=== PATIENT | female | born 1930 | race Asian ===

== ENCOUNTER 2016-03-20 16:27 | Emergency (ER) | payer OTHER ==
--- NOTE | 2016-03-20 18:41 | ED ORDER SUMMARY ---
..... Patient: ROZINA GUADALUPE OrderSheet [facility] VisitID: [id number] [address] [place] [address] 85y, F Registration Date/Time: 03/20/2016 ORDER SHEET Weight: 52.1 kg (estimated) Allergies: Macrobid GENERAL ORDERS: Chest 2V Urgent (16:03/20/2016 PHutchinson DO) (Ack 16:33 LTapper) (17:07 MWinterer R.N.) Team Assembly Line Machine Operator (Continuous) (16:03/20/2016 PHutchinson DO) (16:41 MWinterer R.N.) UA-Culture if indicated Urgent (16:03/20/2016 PHnvchinson DO) (Ack 16:33 LTapper) (17:23 MWinterer R.N.) Cardiac Panel Stat (16:03/20/2016 PHnvchinson DO) (Ack 16:33 LTapper) (17:07 MWinterer R.N.) BNP Urgent (16:03/20/2016 PHutchinson DO) (Ack 16:33 LTapper) (17:07 MWinterer R.N.) Amylase Urgent (16:03/20/2016 PHutchinson DO) (Ack 16:33 LTapper) (17:07 MWinterer R.N.) Lipase Urgent (16:03/20/2016 PHnvchinson DO) (Ack 16:33 LTapper) (17:07 MWinterer R.N.) TSH Urgent (16:03/20/2016 PHutchinson DO) (Ack 16:33 LTapper) (17:07 MWinterer R.N.) PT with INR Urgent (16:03/20/2016 PHutchinson DO) (Ack 16:33 LTapper) (17:07 MWinterer R.N.) Pulse oximeter (16:03/20/2016 PHnvchinson DO) (16:41 MWinterer R.N.) EKG - ER Stat ([facility] (Ack 16:33 LTapper) (16:41 MWinterer R.N.) MEDICATION ORDERS: Aspirin PO 325 mg (if not yet taken) (16:31 03/20/2016 [facility]) (16:41 MWinterer R.N.) IV FLUIDS: IV NS : initial bolus 500 mL (1000 mL/hr), then 250 mL/hr for X2 (NOW) (16:31 03/20/2016 [facility]) (Ack 16:41 MWinterer R.N.) (16:48 MWinterer R.N.) Ceftriaxone IV 2 gm/50mL (NOW) (18:15 03/20/2016 [facility]) (Ack 18:16 MWinterer R.N.) (18:20 MWinterer R.N.) ORDER SHEET NOTES: [Electronically signed by Xena Bar (02:30 03/21/2016)] [Electronically signed by Avelino Maldonado DO (09:02 03/21/2016)] [Electronically locked/signed by Xena Bar (02:03/21/2016)]
--- NOTE | 2016-03-20 18:41 | ED NURSING NOTES ---
Clinical Report - Nurses [facility] [place] [address] 03/20/2016 16:27 Patient: ROZINA GUADALUPE TRIAGE Acuity: LEVEL 3. Chief Complaint: CHEST PAIN. Alert. No acute distress. SEPSIS SCREEN: Sepsis Screen. Negative (no infection suspected/documented). --16:42 Latonya Crump R.N. 16:29 03/20/16. BP: 162/68. HR: 86. RR: 20. O2 saturation: 100% on room air. Temp: 98.9 F (oral). Pain level now: 04/30. --16:42 Latonya Crump R.N. Weight: 52.1 kg estimated. Height/Length: 60 inches Estimated. BMI: 22.4. --16:41 Latonya Crump R.N. Medications Tylenol Oral, as needed. --16:34 Latonya Crump R.N. Escitalopram Oxalate Oral 10 mg, daily. --16:35 Latonya Crump R.N. Morphine Sulfate Oral. --16:35 Latonya Crump R.N. LORazepam Oral 0.5 mg, as needed. --16:36 Latonya Crump R.N. Bisac-Evac Rectal. --16:36 Latonya Crump R.N. Haloperidol Oral. --16:36 Latonya Crump R.N. Voltaren Transdermal. --16:37 Latonya Crump R.N. Atropine Sulfate Ophthalmic. --16:37 Latonya Crump R.N. Calcium 500 Oral. --16:38 Latonya Crump R.N. Medication/allergy information source: the patient's [facility] record. --16:42 Latonya Crump R.N. Allergies Macrobid. --16:39 Latonya Crump R.N. History Arrived by EMS. Historian: patient. Unaccompanied. Primary physician (Josh). This started last night. Relates location as in the right chest area. No difficulty breathing, sweating episodes, nausea, vomiting or fever. No cough. PAST MEDICAL HX: The patient is post-menopausal. SKIN INTEGRITY ASSESSMENT: Skin integrity risk assessment was performed. Risk factors identified include restricted mobility and incontinent. FALL RISK ASSESSMENT: Fall risk assessment completed. Risk factors identified include patient age greater than 65 years and impairment of mobility, sight and cognition. Fall interventions initiated. Patient placed on stretcher. Brakes on Bed in low position. Call light in reach of patient. FUNCTIONAL ASSESSMENT: Functional assessment performed: requires assistance with the activities of daily living; mobility impairment present- this mobility impairment is an ongoing problem; has poor vision in both eyes; cognitive impairment- senile dementia. LEARNING NEEDS ASSESSMENT: A learning needs assessment was performed. Factors affecting the patient's ability to learn include cognitive limitations. --16:42 Latonya Crump R.N. PROBLEMS: Lower Extremity Pain. Cervical Strain. Contusion. Osteoporosis. Hyperlipidemia. Hypertension. Fall. Diabetes Mellitus. --16:39 Latonya Crump R.N. ADDITIONAL SURGERIES: Hip Surgery. --16:39 Latonya Crump R.N. Interventions ID band on patient. To treatment room. --16:42 Latonya Crump R.N. PHYSICAL ASSESSMENT 16:43 03/20/16. To room via stretcher. GENERAL / NEURO / PSYCH: Alert. Appears in no acute distress. The patient is disoriented to place and time. HEENT: Mucous membranes are pink. RESPIRATORY: Respirations not labored. CVS: Cardiac rhythm: normal sinus rhythm. Heart sounds within normal limits. GI / : Abdomen soft and nontender. EXTREMITIES: No lower extremity edema. SKIN: Skin is warm and dry. Normal skin turgor. --16:43 Latonya Crump R.N. NURSING PROGRESS NOTES 16:41 03/20/2016 Aspirin PO 325 mg given. Allergies verified and confirmed 5 rights. --16:41 Latonya Crump R.N. 16:43 03/20/16. electronics worker, pulse oximeter and NIBP monitor placed on patient; monitor alarms on. Patient gowned. Two patient identifiers checked. Call light placed in reach. Side rails up x 2. Bed placed in lowest position. Brakes of bed on. Patient ready for evaluation- chart flagged and ED physician notified. --16:43 Latonya Crump R.N. 16:44 03/20/2016 Site #1 started prior to arrival by EMS via IV in the right antecubital space with an 20g angiocath. Saline lock flushed with 10 mL saline. --16:44 Latonya Crump R.N. 16:48 03/20/2016 Started bag #1 1000 mL IV Fluids IV NS (Saline); at 999 mL/hr over 30 minute(s) via site #1 via IV pump. Allergies verified and confirmed 5 rights. IV patency established. IV site checked: no pain, redness, or swelling. IV flushed thoroughly pre- and post-medication administration. --16:48 Latonya Crump R.N. 17:21 03/20/16. 8 fr in/out catheterization. During procedure hand hygiene observed and sterile equipment and aseptic technique used. Return of yellow-colored cloudy urine. She tolerated procedure well. Patient ID band checked for patient name and birthdate. Catheterized urine collected; sample sent to lab for urinalysis. Specimen labeled in the presence of the patient. --17:21 Latonya Crump R.N. 17:21. Quality Control Inspector provided (catheterization.). --17:51 YasmanyvijayLydia EKG time: (16:48). EKG was performed by a tech and shown to the ED physician. --17:52 Yasmanyvijay Lydia 18:09 03/20/16. BP: 151/74. HR: 85. RR: 19. O2 saturation: 95% on room air. Temp: 98.4 F (oral). --18:10 Latonya Crump R.N. 18:10 03/20/16. The patient reports no complaints and she is calm and resting quietly. --18:10 Latonya Crump R.N. 18:11 03/20/2016 IV Fluids IV NS via IV site #1 Rate Changed: bag #1 decreased to 250 mL/hr. IV patency established. IV site checked: no pain, redness, or swelling. IV flushed thoroughly. Confirmed 5 Rights. --18:11 Latonya Crump R.N. 18:20 03/20/2016 Started 2 gm of Ceftriaxone IVPB in bag #1 50 mL; at 150 mL/hr over 20 minute(s) via site #1 via IV pump. Allergies verified and confirmed 5 rights. IV patency established. IV site checked: no pain, redness, or swelling. IV flushed thoroughly pre- and post-medication administration. --18:20 Latonya Crump R.N. 18:37 03/20/2016 Ceftriaxone IVPB Discontinued: bag #1 infused. Total amount infused: 50 mL. IV patency established. IV site checked: no pain, redness, or swelling. IV flushed thoroughly. --18:37 Latonya Crump R.N. 18:39 03/20/16. BP: 144/65. HR: 85. RR: 16. O2 saturation: 97% on room air. --18:39 Latonya Crump R.N. 18:39 03/20/16. --18:39 Latonya Crump R.N. 18:56 03/20/2016 IV Fluids IV NS Discontinued: bag #1 discontinued upon discharge. Total amount infused: 800 mL. IV patency established. IV site checked: no pain, redness, or swelling. IV flushed thoroughly. --18:56 Latonya Crump R.N. 18:59 03/20/2016 Site #1 removed upon discharge. Catheter intact. Manual pressure and bandage applied. --18:59 Latonya Crump R.N. DISPOSITION / DISCHARGE 18:52 03/20/16. BP: 144/65. HR: 87. RR: 18. O2 saturation: 97% on room air. Temp: 98.3 F (oral). --18:53 Latonya Crump R.N. 19:25 03/20/16. Condition at departure: stable. The goals identified in the patient's plan of care were met. ( Patient assisted out to vehicle in ). No learning barriers present. Discharge instructions provided and reviewed with the patient and family. Reviewed medication(s) side effects, precautions, dosing and course information. Prescription(s) given to the center rep. Reviewed need for increased fluid intake. Family verbalized understanding. Written instructions provided in Mauritian. ( Follow up with PCP to address hypertension as well as follow up to ensure UTI symptoms are improving.). The patient was discharged by the physician. She was discharged home and accompanied by family. She left the Emergency Department in a wheelchair and via private vehicle. Family member driving. --21:47 Xena Bar. Locked/Released at 03/21/2016 2:30 by Xena Bar,
--- NOTE | 2016-03-20 18:41 | ED ORDER SUMMARY ---
..... Patient: ROZINA GUADALUPE OrderSheet [facility] VisitID: [id number] [address] [place] [address] 85y, F Registration Date/Time: 03/20/2016 ORDER SHEET Weight: 52.1 kg (estimated) Allergies: Macrobid GENERAL ORDERS: Chest 2V Urgent (16:03/20/2016 PHutchinson DO) (Ack 16:33 LTapper) (17:07 MWinterer R.N.) Seating Captain (Continuous) (16:03/20/2016 PHutchinson DO) (16:41 MWinterer R.N.) UA-Culture if indicated Urgent (16:03/20/2016 PHflchinson DO) (Ack 16:33 LTapper) (17:23 MWinterer R.N.) Cardiac Panel Stat (16:03/20/2016 PHflchinson DO) (Ack 16:33 LTapper) (17:07 MWinterer R.N.) BNP Urgent (16:03/20/2016 PHutchinson DO) (Ack 16:33 LTapper) (17:07 MWinterer R.N.) Amylase Urgent (16:03/20/2016 PHutchinson DO) (Ack 16:33 LTapper) (17:07 MWinterer R.N.) Lipase Urgent (16:03/20/2016 PHflchinson DO) (Ack 16:33 LTapper) (17:07 MWinterer R.N.) TSH Urgent (16:03/20/2016 PHutchinson DO) (Ack 16:33 LTapper) (17:07 MWinterer R.N.) PT with INR Urgent (16:03/20/2016 PHutchinson DO) (Ack 16:33 LTapper) (17:07 MWinterer R.N.) Pulse oximeter (16:03/20/2016 PHflchinson DO) (16:41 MWinterer R.N.) EKG - ER Stat ([facility] (Ack 16:33 LTapper) (16:41 MWinterer R.N.) MEDICATION ORDERS: Aspirin PO 325 mg (if not yet taken) (16:31 03/20/2016 [facility]) (16:41 MWinterer R.N.) IV FLUIDS: IV NS : initial bolus 500 mL (1000 mL/hr), then 250 mL/hr for X2 (NOW) (16:31 03/20/2016 [facility]) (Ack 16:41 MWinterer R.N.) (16:48 MWinterer R.N.) Ceftriaxone IV 2 gm/50mL (NOW) (18:15 03/20/2016 [facility]) (Ack 18:16 MWinterer R.N.) (18:20 MWinterer R.N.) ORDER SHEET NOTES: [Electronically signed by Xena Bar (02:30 03/21/2016)] [Electronically signed by Avelino Maldonado DO (09:02 03/21/2016)] [Electronically locked/signed by Xena Bar (02:03/21/2016)]
--- NOTE | 2016-03-20 18:41 | ED CLINICAL REPORT ---
Clinical Report - Physicians/Mid Levels [facility] [address] [place] [address] 03/20/2016 16:27 Patient: ROZINA GUADALUPE Time Seen: 16:30. Arrived- By ambulance. Historian- patient and EMS personnel. History limited by dementia. Physical Exam limited by dementia. HISTORY OF PRESENT ILLNESS Chief Complaint: CHEST PAIN. At its maximum, severity described as moderate. When seen in the E.D., severity described as mild. Modifying factors- worsened by movement and deep breaths. Relieved by rest. This started yesterday and is still present. It was gradual in onset and has been waxing/waning. Onset during light activity. It is described as "pain" and it is described as located in the right chest area. No radiation. No nausea, vomiting, difficulty breathing or diaphoresis. (CODE STATUS: DNR with limited interventions). Similar symptoms previously: Recent medical care: Not recently seen/assessed. REVIEW OF SYSTEMS No fever, chills, cough, pedal edema or calf pain. No fainting episodes, sore throat, blurred vision, abdominal pain or black stools. No difficulty with urination, skin rash, enlarged lymph nodes or bloody stools. All systems otherwise negative, except as recorded above. PAST HISTORY Primary physician: Dr Moreno Problems: Cervical Strain. Contusion. Osteoporosis. Hyperlipidemia. Hypertension. Fall. Diabetes Mellitus. Old compresion fractures in the low back Dementia Surgeries: Hip Surgery. SOCIAL HISTORY No alcohol use or drug use. Residence: resides in [facility] - recently (1 week ago) taken off hospice care Is a local resident. ADDITIONAL NOTES The nursing notes have been reviewed. PHYSICAL EXAM Vital Signs: 03/20/2016 16:29 BP: 162/68. HR: 86. RR: 20. O2 saturation: 100%. Temp: 98.9 F. Pain level now: 3/10. Appearance: Alert. Anxious. Patient in mild distress. Eyes: Eyes normal inspection. No scleral icterus or pale conjunctivae. ENT: Pharynx normal. No pharyngeal erythema or tonsillar exudate. The mucous membranes are not dry. Neck: Normal inspection. Neck supple. CVS: Cardiac murmur present. Pulses normal. Respiratory: No respiratory distress. Chest pain reproducible with palpation of the anterior chest wall and with movement of the trunk. Breath sounds normal. No rales, rhonchi or wheezes. Abdomen: Soft and nontender. No mass. Back: Normal external inspection. Skin: Skin warm and dry. Normal skin color. No rash. Extremities: Extremities exhibit normal ROM. No calf tenderness. No lower extremity edema. Neuro: Altered mental status. Eyes open spontaneously. Best verbal response: disoriented. Best motor response: obeys commands. No motor deficit. LABS, X-RAYS, AND EKG EKG: EKG time: (16:48). Normal sinus rhythm. Rate: 85. Left atrial enlargement. Normal DONTE. Normal QRS complex. Normal axis. Non-specific ST segment / T wave abnormalities. The study has been interpreted contemporaneously by me. The EKG appears to be a good tracing. Rhythm Strip #1: Regular rhythm. Narrow QRS complexes. No ectopy. Laboratory Tests: UA-Culture if indicated: (KATE: 03/20/2016 17:15) ( MsgRcvd 03/20/2016 17:39) Final results Test Result Flag Units (Reference) URINE COLOR YELLOW URINE APPEARANCE CLOUDY URINE GLUCOSE NEGATIVE (NEGATIVE) URINE BILIRUBIN NEGATIVE (NEGATIVE) URINE KETONE NEGATIVE (NEGATIVE) URINE SPECIFIC GRAVITY 1.025 (1.010-1.030) URINE PH 7.0 (5.0-8.0) URINE PROTEIN 2+ (NEGATIVE) URINE UROBILINOGEN 0.2 EU/dL (0.2-1.0) URINE NITRITE POSITIVE (NEGATIVE) URINE BLOOD 3+ (NEGATIVE) URINE LEUK ESTERASE POSITIVE (NEGATIVE) URINE RBC 3-5 rbc/hpf (0-1) URINE WBC >100 wbc/hpf (0-1) URINE EPITHELIAL CELLS 3-5 EPI/hpf (0-5) URINE BACTERIA MODERATE (2+ TO 3+) (NONE SEEN) URINE COMMENT CULTURE INDICATED URINE CULTURES ARE SET-UP BASED ON THE FOLLOWING CRITERIA:POSITIVE NITRITEPOSITIVE LEUKOCYTE ESTERASEGREATER THAN 10 WHITE BLOOD CELLSMODERATE (2+) OR GREATER BACTERIA CBC w Diff: (KATE: 03/20/2016 16:50) ( MsgRcvd 03/20/2016 17:27) Final results Test Result Flag Units (Reference) WHITE BLOOD COUNT 13.0 H K/uL (4.5-11.5) RED BLOOD COUNT 4.96 M/uL (4.00-5.20) HEMOGLOBIN 14.4 gm/dL (12.0-16.0) HEMATOCRIT 43.0 % (36.0-46.0) MEAN CELL VOLUME 87 fL (80-100) MEAN CORPUSCULAR HGB 29 pg (26-34) MEAN CORPUSCULAR HGB CONC 34 g/dL (31-37) RED CELL DISTRIBUTION WIDTH 13.8 % (11.6-14.8) PLATELET COUNT 383 K/uL (150-400) NEUTROPHIL % 79.5 H % (50-75) LYMPH % 13.6 L % (25-40) MONO % 5.4 % (3-14) EOSINOPHIL % 0.7 % (0-4) BASOPHIL % 0.8 % (0-2) PT with INR: (KATE: 03/20/2016 16:50) ( [facility] 03/20/2016 17:16) Final results Test Result Flag Units (Reference) INR 0.9 (0.8-1.2) Low Intensity Therapy: INR 1.5-2.0 PT range 18.5-23.1Mod.Intensity Therapy: INR 2.0-3.0 PT range 23.1-31.5High Intensity Therapy: INR 2.5-3.5 PT range 27.4-35.5High Intensity Therapy 2: INR 3.0-4.0 PT range 31.5-39.3 BNP: (KATE: 03/20/2016 16:50) ( [facility] 03/20/2016 17:40) Final results Test Result Flag Units (Reference) B-TYPE NATRIURETIC PEPTIDE 26.9 pg/ml (5-100) CHEM 13 PANEL: (KATE: 03/20/2016 16:50) ( [facility] 03/20/2016 17:43) Final results Test Result Flag Units (Reference) GLUCOSE 147 H mg/dL (70-110) BUN 18 mg/dL (7-18) CREATININE 0.6 mg/dL (0.6-1.3) Estimated GFR >60 mL/min Estimated GFR- >60 mL/min Note: Persistent reduction over 3 months in eGFR<60 mL/min/1.73 m2 defines CKD. Patients with eGFR values>=60 mL/min/1.73 m2 may also have CKD if evidence ofpersistent proteinuria. Additional information may be foundat www.kidney.org. SODIUM 143 mmol/L (136-145) POTASSIUM 4.1 mmol/L (3.5-5.1) CHLORIDE 107 mmol/L (98-107) CARBON DIOXIDE 28 mmol/L (21-32) CALCIUM 8.5 mg/dL (8.5-10.1) TOTAL PROTEIN 7.4 g/dL (6.4-8.2) ALBUMIN 3.6 g/dL (3.3-5.0) BILIRUBIN, TOTAL 0.6 mg/dL (0.0-1.0) ALKALINE PHOSPHATASE 126 H U/L (46-116) AST (SGOT) 24 U/L (15-37) ALT (SGPT) 35 U/L (12-78) MAGNESIUM 1.9 mg/dL (1.8-2.4) LIPASE 91 U/L (73-393) AMYLASE 35 U/L (25-115) CPK 36 U/L (24-260) TROPONIN I <0.05 ng/mL (0.00-1.5) TROPONIN REFERENCE RANGE:<0.1 NEGATIVE0.1-1.5 INDETERMINANT>1.5 POSITIVE THYROID STIMULATING HORMONE 1.245 uIU/mL (0.30-3.74) Culture, Urine: (KATE: 03/20/2016 17:15) ( MsgRcvd 03/21/2016 08:19) IP Test Result Flag Units (Reference) CULTURE, URINE DATE: 03/21/16 PRELIM REPORT: PRELIMINARY REPORT #1 -- GNR QUANTITATIVE URINE GROWTH: GREATER THAN 100,000 CFU/mL ID AND SENS TO FOLLOW: IDENTIFICATION AND SENSITIVITY TO FOLLOW . Microbiology: Urine culture ordered. Pulse Oximetry: 03/20/2016 16:29 O2 saturation: 100%. (FIO2 - room air). Interpretation: normal. PROGRESS AND PROCEDURES Course of Care: Normal Saline 1 liter IVPB given. Ceftriaxone 2 gm IVP given. Clear UTI. Chest with clear tenderness. Pt with limited interventions of POLST - antibiotics ok. Patient/family counseled. Old ED records reviewed. Disposition: Discharged. Condition: stable and improved. CLINICAL IMPRESSION Chest wall pain .12 lead EKG performed. Essential hypertension. Acute urinary tract infection with cystitis. INSTRUCTIONS Drink plenty of fluids. Warnings: Further evaluation is necessary in order to recheck abnormal lab, obtain test results, conduct further tests and assess the possibility of serious illness. It is very important to follow up with a physician. GENERAL WARNINGS: Return or contact your physician immediately if your condition worsens or changes unexpectedly, if not improving as expected, or if other problems arise. Your Current Medications: CONTINUE TAKING THE FOLLOWING MEDICATIONS: Atropine Sulfate Ophthalmic. Bisac-Evac Rectal. Calcium 500 Oral. Escitalopram Oxalate Oral : 10 mg daily. Haloperidol Oral. LORazepam Oral : 0.5 mg, prn. Morphine Sulfate Oral. Tylenol Oral : prn. Voltaren Transdermal. Prescription Medications: Trimethoprim-Sulfamethoxazole DS: take 1 tablet orally every 12 hours for 7 days. Dispense fourteen (14). No refills. OTC Medications: Acetaminophen (available over the counter): take according to label instructions. Follow-up: Screening today revealed the patient's blood pressure to be in the hypertensive range. The patient should follow up with a primary care provider for blood pressure management. (Electronically signed by Avelino Maldonado DO 03/21/2016 9:02)
--- NOTE | 2016-03-20 19:32 | DIAGNOSTIC IMAGING REPORT ---
PROCEDURE: XR CHEST 2 VIEW INDICATION: CHEST PAIN, initial encounter TECHNIQUE: PA and lateral view. COMPARISON: Chest x-ray 08/09/[address] chest 08/21/2013 FINDINGS: Hyperinflation with progression of 2.4 cm right apical nodule, previously 2 cm. Small right basilar opacity which may represent a nipple shadow. Cardiovascular structures are normal. Bony thorax is unremarkable. IMPRESSION: 1. Hyperinflation with progression of 2.4 cm right apical nodule which on prior CT scan had the appearance of old granulomatous disease. Neoplastic changes are less likely. 2. Right basilar opacity suggestive of a nipple shadow. Recommend repeat chest x-ray with nipple markers
--- NOTE | 2016-03-21 09:03 | ED MED RECONCILIATION SUMMARY ---
Patient: ROZINA GUADALUPE Medication Reconciliation Report [facility] VisitID: [id number] [address] [place] [address] 85y, F Registration Date/Time: 03/20/2016 Weight: 52.1 kg Height/Length: 60 in. BMI: 22.4 ALLERGIES: Macrobid The patient's Home Medications are listed below: CONTINUE TAKING THE FOLLOWING MEDICATIONS: Atropine Sulfate Ophthalmic Bisac-Evac Rectal Calcium 500 Oral Escitalopram Oxalate Oral 10 mg, daily Haloperidol Oral LORazepam Oral 0.5 mg Morphine Sulfate Oral Tylenol Oral Voltaren Transdermal The source(s) of the original Home Medication information: patient's [facility] record The following Medications were given to the patient in the Emergency Department: Aspirin [PO] PO 325 mg, administered: 03/20/2016 4:41:00 PM IV NS IV Fluids bolus 0, then 999 mL/hr, administered: 03/20/2016 4:48:00 PM Ceftriaxone [IVPB] IVPB bolus 0, then 2 gm 150 mL/hr, administered: 03/20/2016 6:20:00 PM The following Medications were prescribed to the patient: Acetaminophen (available over the counter): take according to label instructions. -- Avelino Maldonado DO Trimethoprim-Sulfamethoxazole DS: take 1 tablet orally every 12 hours for 7 days. Dispense fourteen (14). No refills. -- Avelino Maldonado DO
--- NOTE | 2016-03-21 09:03 | ED MAR SUMMARY ---
..... Medication Administration Record [facility] [address] [place] [address] Patient: ROZINA GUADALUPE Visit ID: [id number] 85y, F Weight: 52.1 kg Height/Length: 60 in BMI: 22.4 ALLERGIES: Macrobid Given 16:41 03/20/2016 Latonya Crump R.N. Medication Administered: ASPIRIN [PO], Dose: 325 mg PO. Medication Ordered: Aspirin PO 325 mg (if not yet taken). Start 16:48 03/20/2016 Latonya Crump R.N., Stop 18:56 03/20/2016 Latonya Crump R.N. Medication Administered: IV NS (SALINE), Dose: IV Fluids over 30 minute(s), Rate: 999 mL/hr, Dispensed: 1000 mL bag, Site: #1 right AC. Medication Ordered: IV NS : initial bolus 500 mL (1000 mL/hr), then 250 mL/hr for X2 (NOW). Start 18:20 03/20/2016 Latonya Crump R.N., Stop 18:37 03/20/2016 Latonya Crump R.N. Medication Administered: CEFTRIAXONE [IVPB], Dose: 2 gm IVPB over 20 minute(s), Rate: 150 mL/hr, Dispensed: 50 mL bag, Site: #1 right AC. Medication Ordered: Ceftriaxone IV 2 gm/50mL (NOW).
--- NOTE | 2016-03-21 09:03 | ED MED RECONCILIATION SUMMARY ---
Patient: ROZINA GUADALUPE Medication Reconciliation Report [facility] VisitID: [id number] [address] [place] [address] 85y, F Registration Date/Time: 03/20/2016 Weight: 52.1 kg Height/Length: 60 in. BMI: 22.4 ALLERGIES: Macrobid The patient's Home Medications are listed below: CONTINUE TAKING THE FOLLOWING MEDICATIONS: Atropine Sulfate Ophthalmic Bisac-Evac Rectal Calcium 500 Oral Escitalopram Oxalate Oral 10 mg, daily Haloperidol Oral LORazepam Oral 0.5 mg Morphine Sulfate Oral Tylenol Oral Voltaren Transdermal The source(s) of the original Home Medication information: patient's half-way record The following Medications were given to the patient in the Emergency Department: Aspirin [PO] PO 325 mg, administered: 03/20/2016 4:41:00 PM IV NS IV Fluids bolus 0, then 999 mL/hr, administered: 03/20/2016 4:48:00 PM Ceftriaxone [IVPB] IVPB bolus 0, then 2 gm 150 mL/hr, administered: 03/20/2016 6:20:00 PM The following Medications were prescribed to the patient: Acetaminophen (available over the counter): take according to label instructions. -- Avelino Maldonado DO Trimethoprim-Sulfamethoxazole DS: take 1 tablet orally every 12 hours for 7 days. Dispense fourteen (14). No refills. -- Avelino Maldonado DO
--- NOTE | 2016-03-21 09:03 | ED DISCHARGE INSTRUCTIONS ---
Patient: ROZINA GUADALUPE General Instructions [facility] VisitID: [id number] [address] [place] [address] 85y, F Registration Date/Time: 03/20/2016 Chest wall pain .12 lead EKG performed. Essential hypertension. Acute urinary tract infection with cystitis. INSTRUCTIONS Drink plenty of fluids. Warnings: Further evaluation is necessary in order to recheck abnormal lab, obtain test results, conduct further tests and assess the possibility of serious illness. It is very important to follow up with a physician. GENERAL WARNINGS: Return or contact your physician immediately if your condition worsens or changes unexpectedly, if not improving as expected, or if other problems arise. Your Current Medications: CONTINUE TAKING THE FOLLOWING MEDICATIONS: Atropine Sulfate Ophthalmic. Bisac-Evac Rectal. Calcium 500 Oral. Escitalopram Oxalate Oral : 10 mg daily. Haloperidol Oral. LORazepam Oral : 0.5 mg, prn. Morphine Sulfate Oral. Tylenol Oral : prn. Voltaren Transdermal. Prescription Medications: Trimethoprim-Sulfamethoxazole DS: take 1 tablet orally every 12 hours for 7 days. Dispense fourteen (14). No refills. OTC Medications: Acetaminophen (available over the counter): take according to label instructions. Follow-up: Screening today revealed the patient's blood pressure to be in the hypertensive range. The patient should follow up with a primary care provider for blood pressure management. ADDITIONAL INFORMATION Chest Strain A strain of the chest is due to stretching and tearing of the muscle fibers between the ribs. This may occur as a result of severe coughing, strenuous lifting or twisting injuries of the upper back. This usually causes increased pain with movement or deep breathing. This may take a few days to a few weeks to heal. Home Care: Rest. Avoid heavy lifting or strenuous exertion. Avoid any activity that causes pain. If you have a severe cough, use a cough syrup such as Robitussin DM (containing dextromethorphan) unless another cough medicine was prescribed. You may use acetaminophen (Tylenol) or ibuprofen (Motrin, Advil) to control pain, unless another medicine was prescribed. [ NOTE: If you have chronic liver or kidney disease or ever had a stomach ulcer or GI bleeding, talk with your doctor before using these medicines.] Follow Up with your doctor as directed. Get Prompt Medical Attention if any of the following occur: A change in the type of pain: if it feels different, becomes more severe, lasts longer, or begins to spread into your shoulder, arm, neck, jaw or back Shortness of breath or increased pain with breathing Cough with dark colored sputum (phlegm) or blood Weakness, dizziness, or fainting Fever of 100.4F (38C) or higher, or as directed by your healthcare provider High Blood Pressure --Established High Blood Pressure (Hypertension) is a chronic disease. The cause is unknown in most cases. It can usually be controlled with lifestyle changes and/or medicines. Symptoms of high blood pressure may include headache, dizziness, visual changes, chest pain and shortness of breath. Sometimes it causes no symptoms at all. However, even if there are no symptoms, untreated high blood pressure increases the risk of heart attack, also known as acute myocardial infarction, or AMI, and stroke. It is a serious health risk and should not be ignored. A normal blood pressure is 120/80 or less. The first (top) number is the "systolic" pressure. The second (bottom) number is the "diastolic" pressure. Hypertension exists when either the top number is 140 or higher, OR the bottom number is 90 or higher on repeated measurements. Home Care: All patients with high blood pressure should do the following to lower their pressure. If you are on medicines, then these methods may reduce or eliminate your need for medicines in the future. Begin a weight loss program if you are overweight. Reduce your salt intake. Avoid high salt foods (olives, pickles, smoked meats, salted potato chips, etc.). Do not add salt to your food at the table. Use only small amounts of salt when cooking. Begin an exercise program. Discuss with your doctor what type of exercise program would be best for you. It doesn't have to be difficult. Even brisk walking for 20 minutes three times a week is a good form of exercise. Avoid medicines which contain heart stimulants. This includes many cold and sinus decongestant pills and sprays as well as diet pills. Check the warnings about hypertension on the label. Stimulants such as amphetamine or cocaine could be lethal for someone with hypertension. Never take these. Limit your caffeine intake or switch to caffeine-free products. Stop smoking. If you are a long-time smoker, this can be hard. Enroll in a stop-smoking program to improve your chance of success. Learning how to handle stress better is an important part of any program to lower blood pressure. Learn about relaxation methods such as meditation, yoga or biofeedback. If medicines were prescribed, take them exactly as directed. Missing doses may cause your blood pressure get out of control. Consider buying an automatic blood pressure machine (available at most pharmacies). Use this to monitor your blood pressure at home and report the results to your doctor. Follow Up: Regular visits to your own physician for blood pressure checks and medicine adjustment is an important part of your care. Make a follow-up appointment as directed by our staff. Get Prompt Medical Attention if any of the following occur: Chest pain or shortness of breath Severe headache Throbbing or rushing sound in the ears Nosebleed Sudden severe abdominal pain Extreme drowsiness, confusion or fainting Dizziness or vertigo (dizziness with spinning sensation) Weakness of an arm or leg or one side of the face Difficulty with speech or vision Sulfamethoxazole, Trimethoprim Oral tablet What is this medicine? SULFAMETHOXAZOLE; TRIMETHOPRIM or SMX-TMP (suhl fuh meth OK kofi zohl; trye METH oh prim) is a combination of a sulfonamide antibiotic and a second antibiotic, trimethoprim. It is used to treat or prevent certain kinds of bacterial infections. It will not work for colds, flu, or other viral infections. How should I use this medicine? Take this medicine by mouth with a full glass of water. Follow the directions on the prescription label. Take your medicine at regular intervals. Do not take it more often than directed. Do not skip doses or stop your medicine early. Talk to your print developer regarding the use of this medicine in children. Special care may be needed. This medicine has been used in children as young as 2 months of age. What side effects may I notice from receiving this medicine? Side effects that you should report to your doctor or health healthcare administration internship as soon as possible: allergic reactions like skin rash or hives, swelling of the face, lips, or tongue breathing problems fever or chills, sore throat irregular heartbeat, chest pain joint or muscle pain pain or difficulty passing urine red pinpoint spots on skin redness, blistering, peeling or loosening of the skin, including inside the mouth unusual bleeding or bruising unusually weak or tired yellowing of the eyes or skin Side effects that usually do not require medical attention (report to your doctor or health healthcare administration internship if they continue or are bothersome): diarrhea dizziness headache loss of appetite nausea, vomiting nervousness What may interact with this medicine? Do not take this medicine with any of the following medications: aminobenzoate potassium dofetilide metronidazole This medicine may also interact with the following medications: TAMI inhibitors like benazepril, enalapril, lisinopril, and ramipril cyclosporine digoxin diuretics indomethacin medicines for diabetes methenamine methotrexate phenytoin potassium supplements pyrimethamine sulfinpyrazone tricyclic antidepressants warfarin What if I miss a dose? If you miss a dose, take it as soon as you can. If it is almost time for your next dose, take only that dose. Do not take double or extra doses. Where should I keep my medicine? Keep out of the reach of children. Store at room temperature between 20 to 25 degrees C (68 to 77 degrees F). Protect from light. Throw away any unused medicine after the expiration date. What should I tell my health care provider before I take this medicine? They need to know if you have any of these conditions: anemia asthma being treated with anticonvulsants if you frequently drink alcohol containing drinks kidney disease liver disease low level of folic acid or [id number] dehydrogenase poor nutrition or malabsorption porphyria severe allergies thyroid disorder an unusual or allergic reaction to sulfamethoxazole, trimethoprim, sulfa drugs, other medicines, foods, dyes, or preservatives or trying to get breast-feeding What should I watch for while using this medicine? Tell your doctor or health healthcare administration internship if your symptoms do not improve. Drink several glasses of water a day to reduce the risk of kidney problems. Do not treat diarrhea with over the counter products. Contact your doctor if you have diarrhea that lasts more than 2 days or if it is severe and watery. This medicine can make you more sensitive to the sun. Keep out of the sun. If you cannot avoid being in the sun, wear protective clothing and use a sunscreen. Do not use sun lamps or tanning beds/booths. Acetaminophen Oral tablet What is this medicine? ACETAMINOPHEN (a set a THAI nestor fen) is a pain reliever. It is used to treat mild pain and fever. How should I use this medicine? Take this medicine by mouth with a glass of water. Follow the directions on the package or prescription label. Take your medicine at regular intervals. Do not take your medicine more often than directed. Talk to your print developer regarding the use of this medicine in children. While this drug may be prescribed for children as young as 6 years of age for selected conditions, precautions do apply. What side effects may I notice from receiving this medicine? Side effects that you should report to your doctor or health healthcare administration internship as soon as possible: allergic reactions like skin rash, itching or hives, swelling of the face, lips, or tongue breathing problems fever or sore throat redness, blistering, peeling or loosening of the skin, including inside the mouth trouble passing urine or change in the amount of urine unusual bleeding or bruising unusually weak or tired yellowing of the eyes or skin Side effects that usually do not require medical attention (report to your doctor or health healthcare administration internship if they continue or are bothersome): headache nausea, stomach upset What may interact with this medicine? alcohol imatinib isoniazid other medicines with acetaminophen What if I miss a dose? If you miss a dose, take it as soon as you can. If it is almost time for your next dose, take only that dose. Do not take double or extra doses. Where should I keep my medicine? Keep out of reach of children. Store at room temperature between 20 and 25 degrees C (68 and 77 degrees F). Protect from moisture and heat. Throw away any unused medicine after the expiration date. What should I tell my health care provider before I take this medicine? They need to know if you have any of these conditions: if you frequently drink alcohol containing drinks liver disease an unusual or allergic reaction to acetaminophen, other medicines, foods, dyes or preservatives or trying to get breast-feeding What should I watch for while using this medicine? Tell your doctor or health healthcare administration internship if the pain lasts more than 10 days (5 days for children), if it gets worse, or if there is a new or different kind of pain. Also, check with your doctor if a fever lasts for more than 3 days. Do not take other medicines that contain acetaminophen with this medicine. Always read labels carefully. If you have questions, ask your doctor or pharmacist. If you take too much acetaminophen get medical help right away. Too much acetaminophen can be very dangerous and cause liver damage. Even if you do not have symptoms, it is important to get help right away. You have been given the following additional information: Chest Wall Strain Hypertension, Established Sulfamethoxazole, Trimethoprim Oral tablet Acetaminophen Oral tablet (Electronically signed by Avelino Maldonado DO 03/21/2016 9:02)
--- NOTE | 2016-03-21 09:03 | ED MAR SUMMARY ---
..... Medication Administration Record [facility] [address] [place] [address] Patient: ROZINA GUADALUPE Visit ID: [id number] 85y, F Weight: 52.1 kg Height/Length: 60 in BMI: 22.4 ALLERGIES: Macrobid Given 16:41 03/20/2016 Latonya Crump R.N. Medication Administered: ASPIRIN [PO], Dose: 325 mg PO. Medication Ordered: Aspirin PO 325 mg (if not yet taken). Start 16:48 03/20/2016 Latonya Crump R.N., Stop 18:56 03/20/2016 Latonya Crump R.N. Medication Administered: IV NS (SALINE), Dose: IV Fluids over 30 minute(s), Rate: 999 mL/hr, Dispensed: 1000 mL bag, Site: #1 right AC. Medication Ordered: IV NS : initial bolus 500 mL (1000 mL/hr), then 250 mL/hr for X2 (NOW). Start 18:20 03/20/2016 Latonya Crump R.N., Stop 18:37 03/20/2016 Latonya Crump R.N. Medication Administered: CEFTRIAXONE [IVPB], Dose: 2 gm IVPB over 20 minute(s), Rate: 150 mL/hr, Dispensed: 50 mL bag, Site: #1 right AC. Medication Ordered: Ceftriaxone IV 2 gm/50mL (NOW).
== END 2016-03-20 19:25 | disposition home or self-care (01) ==
LOC: ED SRH 16:27
DX: R07.89 Other chest pain (principal); N30.00 Acute cystitis without hematuria; I10 Essential (primary) hypertension; E11.9 Type 2 diabetes mellitus without complications; E78.5 Hyperlipidemia, unspecified; Z79.891 Long term (current) use of opiate analgesic; Z79.899 Other long term (current) drug therapy; Z88.1 Allergy status to other antibiotic agents
CPT/HCPCS: 81460; 90004; 90074; 90100; 90148; 90469; 90616; 91320; 92235; 92530; 92610; 92720; 93140; 94060; 95059